=== PATIENT | male | born 1985 | race Caucasian/White ===

== ENCOUNTER 2016-12-15 22:59 | Emergency (ER) | payer SELFPAY ==
[~2016-12-15] VITALS: Ht 180.3 cm; Wt 61.3 kg
[~2016-12-15 22:59] MED LIST: AMOXICILLIN500 MG PO; AMOXICILLIN875 MG PO; ATIVAN0.5 MG PO; ATIVAN1 MG PO; AUGMENTIN500TAB PO; EXCEDRI2 OR; FLEXERIL OR; LORTAB5 OR; NAPROSYN500 MG OR; NO CURRENT MEDS; NO HOME MEDS; PENICILLN VK500 M1 OR; ULTRAM50 M1 PO; VIBRATAB100 MG OR; XANAX0.5 MG PO; ZYRTEC-D AL1 OR
[2016-12-15 23:42] LABS: IMMATURE GRANULOCYTES 0.2 % (0.0-1.0); MEAN CELL VOLUME 85.5 fL CALC (80.0-100.0); MEAN CORPUSCULAR HGB 29.8 pG CALC (26.0-32.0); MEAN CORPUSCULAR HGB CONC 34.9 g/L CALC (32.0-36.0); NEUT# 5.56 thou/uL (1.82-7.42); RED BLOOD COUNT 5.03 mill/uL (4.70-6.10); RED CELL DISTRI WIDTH 12.2 % (11.5-15.5)
[2016-12-15 23:48] LABS: ALKALINE PHOSPHATASE 66 u/l (38-126); ANION GAP 17 (6-22 (CALC)); BILIRUBIN, TOTAL 0.7 mg/dL (0.0-1.4); BUN 20 mg/dL (9-20); BUN/CREATININE RATIO 19 (12-20 (CALC)); CALCIUM 10.1 mg/dL (8.4-10.2); CARBON DIOXIDE 28 mmol/l (22-30); CHLORIDE 100 mmol/l (95-108); CREATININE 1.1 mg/dL (0.7-1.3); GFR > 60 ML/MIN (>=60 (CALC)); GFR FOR AFR.AMER. > 60 ML/MIN (>=60 (CALC)); GLUCOSE 88 mg/dL (75-110); POTASSIUM 3.8 mmol/l (3.5-5.1); SGOT/AST 24 u/l (17-59); SGPT/ALT 37 u/l (21-72); SODIUM 142 mmol/l (137-146); TOTAL PROTEIN 7.8 g/dL (6.3-8.2)
[2016-12-15 23:59] LABS: MYOGLOBIN 37 ng/mL (0 - 121)
[2016-12-16] LABS: URINE BILIRUBIN - DIPSTICK NEGATIVE (NEGATIVE); URINE BLOOD DIPSTICK NEGATIVE (NEGATIVE); URINE CLARITY CLEAR; URINE COLOR YELLOW; URINE GLUCOSE - DIPSTICK NEGATIVE (NEGATIVE); URINE KETONE NEGATIVE (NEGATIVE); URINE LEUK ESTERASE NEGATIVE (NEGATIVE); URINE NITRITE - DIPSTICK NEGATIVE (Negative); URINE PROTEIN - DIPSTICK NEGATIVE (NEG-TRACE); URINE SPECIFIC GRAVITY <=1.005; URINE UROBILINOGEN - DIPSTICK 0.2 E.U./dL (0.2)
[2016-12-16 00:05] LABS: BARBITURATES NEGATIVE (NEGATIVE); COCAINE NEGATIVE (NEGATIVE); METHADONE NEGATIVE (NEGATIVE); OXCYCODONE POSITIVE (NEGATIVE); TETRAHYDROCANNABIONOL NEGATIVE (NEGATIVE); TRICYLIC ANTIDEPRESSANTS NEGATIVE (NEGATIVE)
[2016-12-16 00:30] VITALS: BP 135/80
== END 2016-12-16 00:30 | disposition home or self-care (01) | DRG 313 ==
LOC: ED 22:59
PROVIDERS: Emergency Medicine
DX: R07.89 Other chest pain (principal); F41.9 Anxiety disorder, unspecified; J45.909 Unspecified asthma, uncomplicated; K21.9 Gastro-esophageal reflux disease without esophagitis; F17.210 Nicotine dependence, cigarettes, uncomplicated

== ENCOUNTER 2018-07-06 00:27 | Observation (INO) | payer SELFPAY ==
[~2018-07-06] VITALS: Ht 182.9 cm; Wt 67.0 kg
[2018-07-06 00:58] LABS: HEMATOCRIT 44.2 % (39.0-50.0); HEMOGLOBIN 15.1 g/dl (14.0-18.0); IMMATURE GRANULOCYTES 0.2 % (0.0-5.0); MEAN CELL VOLUME 86.5 fL CALC (80.0-100.0); MEAN CORPUSCULAR HGB 29.5 pG CALC (26.0-32.0); MEAN CORPUSCULAR HGB CONC 34.2 g/L CALC (32.0-36.0); NEUT# 4.66 thou/uL (1.82-7.42); RED BLOOD COUNT 5.11 mill/uL (4.70-6.10); RED CELL DISTRI WIDTH 12.2 % (11.5-15.5)
[2018-07-06 01:00] LABS: URINE BILIRUBIN - DIPSTICK NEGATIVE (NEGATIVE); URINE BLOOD DIPSTICK NEGATIVE (NEGATIVE); URINE COLOR YELLOW; URINE GLUCOSE - DIPSTICK NEGATIVE (NEGATIVE); URINE KETONE NEGATIVE (NEGATIVE); URINE LEUK ESTERASE NEGATIVE (NEGATIVE); URINE NITRITE - DIPSTICK NEGATIVE (Negative); URINE PH 6.5 (4.5-8.0); URINE PROTEIN - DIPSTICK NEGATIVE (NEG-TRACE); URINE SPECIFIC GRAVITY <=1.005; URINE UROBILINOGEN - DIPSTICK 0.2 E.U./dL (0.2)
[2018-07-06 01:03] LABS: BARBITURATES NEGATIVE (NEGATIVE); COCAINE NEGATIVE (NEGATIVE); METHADONE NEGATIVE (NEGATIVE); OXCYCODONE NEGATIVE (NEGATIVE); TETRAHYDROCANNABIONOL NEGATIVE (NEGATIVE); TRICYLIC ANTIDEPRESSANTS NEGATIVE (NEGATIVE)
[2018-07-06 01:10] LABS: ALBUMIN 4.6 g/dL (3.2-5.0); ALKALINE PHOSPHATASE 82 u/l (38-126); ANION GAP 17 (6-22 (CALC)); BILIRUBIN, TOTAL 0.4 mg/dL (0.0-1.4); BUN 14 mg/dL (9-20); BUN/CREATININE RATIO 13 (12-20 (CALC)); CARBON DIOXIDE 27 mmol/l (22-30); CHLORIDE 101 mmol/l (95-108); CREATININE 1.1 mg/dL (0.7-1.3); GFR > 60 ML/MIN (>=60 (CALC)); GFR FOR AFR.AMER. > 60 ML/MIN (>=60 (CALC)); POTASSIUM 3.6 mmol/l (3.5-5.1); SGOT/AST 42 u/l (17-59); SODIUM 141 mmol/l (137-146)
[2018-07-06 01:17] LABS: ACT PARTIAL THROMBO TIME 31.5 SECONDS (20.0-32.5); PROTHROMBIN TIME 10.6 SECONDS (9.0-12.5)
[2018-07-06 01:22] LABS: MYOGLOBIN 30 ng/mL (0 - 121)
[2018-07-06 03:15] VITALS: BP 129/81
[2018-07-06 07:52] VITALS: BP 120/66
== END 2018-07-06 12:35 | disposition home or self-care (01) | DRG 313 ==
LOC: ED 00:27 → ED-I 02:12 → ED 02:29 → MS2 02:30
PROVIDERS: Emergency Medicine; ADMIT Internal Medicine; ATTEND Internal Medicine
DX: R07.89 Other chest pain (principal); F41.9 Anxiety disorder, unspecified; F17.210 Nicotine dependence, cigarettes, uncomplicated; R14.0 Abdominal distension (gaseous)
CPT/HCPCS: G0378

== ENCOUNTER 2018-09-16 08:49 | Emergency (ER) | payer SELFPAY ==
[~2018-09-16] VITALS: Ht 182.9 cm; Wt 90.0 kg
[2018-09-16] MEDS ORDERED: XANAX1 MG PO (09:04)
[2018-09-16] MEDS ORDERED: CORTISPORIN OTI10 M2 AU (09:17)
[2018-09-16 09:56] VITALS: BP 143/99
== END 2018-09-16 10:00 | disposition home or self-care (01) | DRG 156 ==
LOC: ED 08:49
PROC: 3E1B78Z Irrigation of Ear using Irrigating Substance, Via Natural or Artificial Opening (ICD-10-PCS; principal; 2018-09-16)
DX: H61.21 Impacted cerumen, right ear (principal); H92.01 Otalgia, right ear; F17.210 Nicotine dependence, cigarettes, uncomplicated

== ENCOUNTER 2019-04-30 09:23 | Emergency (ER) | payer SELFPAY ==
[~2019-04-30] VITALS: Ht 182.9 cm; Wt 70.0 kg
[~2019-04-30 09:23] MED LIST changes: +CORTISPORIN OTI10 M2 AU; +XANAX1 MG PO
[2019-04-30] MEDS ORDERED: CYCLOBENZAPR5 MG PO (10:16)
[2019-04-30 10:24] VITALS: BP 141/88
== END 2019-04-30 10:31 | disposition home or self-care (01) | DRG 563 ==
LOC: ED 09:23
DX: S39.012A Strain of muscle, fascia and tendon of lower back, initial encounter (principal); F17.200 Nicotine dependence, unspecified, uncomplicated; X58.XXXA Exposure to other specified factors, initial encounter

== ENCOUNTER 2020-05-17 06:41 | Emergency (ER) | payer SELFPAY ==
[~2020-05-17] VITALS: Ht 182.9 cm; Wt 65.0 kg
[~2020-05-17 06:41] MED LIST changes: +CYCLOBENZAPR5 MG PO
[2020-05-17 07:42] LABS: HEMATOCRIT 47.2 % (39.0-50.0); HEMOGLOBIN 15.3 g/dl (14.0-18.0); IMMATURE GRANULOCYTES 0.1 % (0.0-5.0); MEAN CELL VOLUME 87.4 fL CALC (80.0-100.0); MEAN CORPUSCULAR HGB 28.3 pG CALC (26.0-32.0); MEAN CORPUSCULAR HGB CONC 32.4 g/dL CAL (32.0-36.0); NEUT# 3.41 thou/uL (1.82-7.42); RED BLOOD COUNT 5.4 mill/uL (4.70-6.10); RED CELL DISTRI WIDTH 12.1 % (11.5-15.5)
[2020-05-17 07:45] LABS: ALBUMIN 4.5 g/dL (3.2-5.0); ALKALINE PHOSPHATASE 67 u/l (38-126); BUN 20 mg/dL (9-20); BUN/CREATININE RATIO 18 (12-20 (CALC)); CARBON DIOXIDE 32 mmol/l (22-30); CHLORIDE 99 mmol/l (95-108); CREATININE 1.2 mg/dL (0.7-1.3); GFR > 60 ML/MIN (>=60 (CALC)); GFR FOR AFR.AMER. > 60 ML/MIN (>=60 (CALC)); LIPASE 54 u/l (23-300); SGOT/AST 31 u/l (17-59); SODIUM 138 mmol/l (137-146); TOTAL PROTEIN 7.5 g/dL (6.3-8.2)
[2020-05-17 07:57] LABS: MYOGLOBIN 37 ng/mL (0 - 121)
[2020-05-17 07:58] LABS: ANION GAP 12 (6-22 (CALC)); BILIRUBIN, TOTAL 0.7 mg/dL (0.0-1.4); POTASSIUM 4.6 mmol/l (3.5-5.1)
[2020-05-17] MEDS ORDERED: TORADOL PO (10:20)
[2020-05-17 10:59] VITALS: BP 136/69
== END 2020-05-17 10:59 | disposition home or self-care (01) | DRG 313 ==
LOC: ED 06:41
PROVIDERS: Emergency Medicine
DX: R07.9 Chest pain, unspecified (principal); F41.9 Anxiety disorder, unspecified; F17.210 Nicotine dependence, cigarettes, uncomplicated

== ENCOUNTER 2021-06-09 18:25 | Emergency (ER) | payer SELFPAY ==
[~2021-06-09] VITALS: Ht 182.9 cm; Wt 65.0 kg
[~2021-06-09 18:25] MED LIST changes: +TORADOL PO
[2021-06-09 21:45] VITALS: BP 136/98
== END 2021-06-09 21:45 | disposition home or self-care (01) | DRG 563 ==
LOC: ED 18:25
DX: S93.401A Sprain of unspecified ligament of right ankle, initial encounter (principal); F41.9 Anxiety disorder, unspecified; F17.210 Nicotine dependence, cigarettes, uncomplicated; W17.2XXA Fall into hole, initial encounter; Y92.73 Farm field as the place of occurrence of the external cause

== ENCOUNTER 2024-10-02 15:47 | Emergency (ER) | payer SELFPAY ==
[2024-10-02] VITALS (12 sets, daily range): BP systolic 124–150; BP diastolic 79–94
[~2024-10-02] VITALS: Ht 182.9 cm; Wt 65.8 kg
[2024-10-02] MEDS ORDERED: FAMOTIDINE 10MG/ML 2ML SDV IV ONE (16:40)
[2024-10-02] MEDS ORDERED: Pantoprazole Sodium 40 MG VIAL (Protonix) IV ONE (16:40)
[2024-10-02 16:52] LABS: BASO% 0.6 % (0-3); EOS% 3.3 % (0-8); HEMATOCRIT 45.9 % (39.0-50.0); HEMOGLOBIN 15.3 g/dl (14.0-18.0); IMMATURE GRANULOCYTES 0.1 % (0.0-5.0); LYMPH% 19.9 % (15-41); MEAN CELL VOLUME 88.3 fL CALC (80.0-100.0); MEAN CORPUSCULAR HGB 29.4 pG CALC (26.0-32.0); MEAN CORPUSCULAR HGB CONC 33.3 g/dL CAL (32.0-36.0); MONO% 4.3 % (2-13); NEUT# 6.03 thou/uL (1.82-7.42); NEUT% 71.8 % (42-76); RED BLOOD COUNT 5.2 mill/uL (4.70-6.10); RED CELL DISTRI WIDTH 12.2 % (11.5-15.5)
[2024-10-02 17:03] LABS: ALBUMIN 4.6 g/dL (3.2-5.0); ALKALINE PHOSPHATASE 84 u/l (38-126); ANION GAP 11 (6-22 (CALC)); BILIRUBIN, TOTAL 0.5 mg/dL (0.2-1.3); BUN 21 mg/dL (9-20); BUN/CREATININE RATIO 17 (12-20 (CALC)); CARBON DIOXIDE 31 mmol/l (22-30); CHLORIDE 102 mmol/l (95-108); CREATININE 1.2 mg/dL (0.7-1.3); ESTIMATED GFR 79 ML/MIN (>=90 (CALC)); LIPASE 81 u/l (23-300); SGOT/AST 40 u/l (17-59); SODIUM 139 mmol/l (137-146); TOTAL PROTEIN 7.7 g/dL (6.3-8.2)
[2024-10-02 17:13] LABS: POTASSIUM 4.6 mmol/l (3.5-5.1)
[2024-10-02] MEDS ORDERED: PROTONIX40 M2 PO (18:51)
== END 2024-10-02 19:18 | disposition home or self-care (01) | DRG 313 ==
LOC: ED 15:47
PROVIDERS: Nurse Practitioner
DX: R07.89 Other chest pain (principal); F41.9 Anxiety disorder, unspecified; F17.200 Nicotine dependence, unspecified, uncomplicated
CPT/HCPCS: J2470